=== PATIENT | male | born 1965 | race Caucasian/White ===

== ENCOUNTER 2020-01-31 23:25 | Inpatient (IN) | payer MEDICAID, OTHER ==
[~2020-01-31] VITALS: Ht 184.2 cm; Wt 100.8 kg
[2020-01-31] MEDS ORDERED: MORPHINE SULFATE 4 MG/ML SYR/VIAL IV ONE (23:45)
[2020-02-01] MEDS ORDERED: SODIUM CHLORIDE 0.9% 1,000 ML IV ONE (00:15)
[2020-02-01 00:21] LABS: Basophils # (auto) 0 10 ^3/uL (0-0.2); Basophils % (auto) 0.3 % (0.0-2.0); Eosinophils # (auto) 0.1 10 ^3/uL (0-0.8); Eosinophils % (auto) 0.7 % (0.0-7.0); Hematocrit 48.8 % (41.0-53.0); Hemoglobin 16.5 g/dL (13.5-17.5); Lymphocytes # (auto) 1.3 10 ^3/uL (0.4-5.4); Lymphocytes % (auto) 8.8 % (10.0-50.0); Mean Corpuscular Hemoglobin 29.9 pg (28.0-32.0); Mean Corpuscular Hgb Conc. 33.8 g/dL (32.0-36.0); Mean Corpuscular Volume 88.5 fL (80.0-100.0); Monocytes # (auto) 0.9 10 ^3/uL (0-1.3); Monocytes % (auto) 6.2 % (0.0-12.0); Neutrophils # (auto) 12.1 10 ^3/uL (1.6-8.6); Nucleated Red Blood Cells % 0.1 %; Platelet Count (auto) 227 10^3/uL (140-450); Red Blood Cells 5.51 10^6/uL (4.5-5.90); Red Cell Distribution Width 13.3 % (11.8-14.3); White Blood Cell 14.5 10^3/uL (4.4-10.8)
[2020-02-01 00:39] LABS: Albumin 3.9 g/dL (3.4-5.0); Calcium 9.3 mg/dL (8.5-10.1); Potassium 4.3 mmol/L (3.5-5.1)
[2020-02-01 00:42] LABS: Bilirubin, Total 0.5 mg/dL (0.2-1.0); Total Protein 7.6 g/dL (6.4-8.2)
[2020-02-01] MEDS ORDERED: SODIUM CHLORIDE 0.9% 2,000 ML IV ONE (00:45)
[2020-02-01] MEDS ORDERED: KETOROLAC TROMETH 30 MG/ML 1ML VIAL IV ONE (01:00)
[2020-02-01 01:09] LABS: Lactic Acid w/Reflex 2.2 mmol/L (0.4-2.0)
[2020-02-01] MEDS ORDERED: cefTRIAXone 1GM/50ML D5W 50 ML IV ONE (01:30)
[2020-02-01 02:42] LABS: Urine Bacteria FEW /hpf (None Seen); Urine Blood 2+ /uL (Negative); Urine Mucus FEW (None Seen); Urine Specific Gravity 1.017 (1.001-1.035); Urine WBC 24 /hpf (0 - 3)
[2020-02-01] MEDS ORDERED: VANCOMYCIN 1GM/250ML 250 ML IV ONE (03:30)
[2020-02-01] MEDS ORDERED: ONDANSETRON HCL 4 MG/2 ML VIAL IV ONE (04:30)
[2020-02-01] MEDS ORDERED: HYDROmorphone HCL 2 MG/ML VL IV ONE (04:30)
[2020-02-01] MEDS ORDERED: TAMSULOSIN HYDROCHLORIDE 0.4 MG CAP PO ONE (04:45)
[2020-02-01] MEDS ORDERED: TEMAZEPAM 15 MG CAP PO PRN (04:45)
[2020-02-01] MEDS ORDERED: cloNIDine HCL 0.1 MG TAB PO PRN (04:45)
[2020-02-01] MEDS ORDERED: ONDANSETRON HCL 4 MG/2 ML VIAL IV PRN (04:45)
[2020-02-01] MEDS: SODIUM CHLORIDE 0.9% 1,000 ML IV SCH ×4 (07:38→18:55)
[2020-02-01] MEDS: HYDROcodone-ACET 5/325MG TAB PO PRN (07:45)
--- NOTE | 2020-02-01 08:22 | NUR ---
MS admit from ER JERRELL BELL admitted to tele/MS after SBAR received. Patient oriented to KARISSA CARDENASRN primary RN, unit,280 room,B bed, and unit policies regarding patient care and visiting hours. Patient weighed by bedscale and encouraged to call if they need something. All questions and concerns addressed, patient verbalized understanding.
[2020-02-01 09:00] VITALS: BP_SYST 150; BP_SYST 162; BP_DIAS 88; BP_DIAS 89
[2020-02-01 09:15] VITALS: BP 150/89
[2020-02-01] MEDS: FAMOTIDINE 20 MG TAB PO SCH ×2 (10:00→21:58)
--- NOTE | 2020-02-01 11:05 | NUR ---
Orders received Patient requesting Toradol for pain medication. Informed doctor Yevgeniy that patient is c/o pain from kidney stones and requesting Toradol for pain. New orders received, see emr for orders.
[2020-02-01] MEDS: KETOROLAC TROMETH 30 MG/ML 1ML VIAL IV PRN ×2 (11:23→18:01)
--- NOTE | 2020-02-01 12:05 | NUR ---
Doctor Vuong at bedside.
[2020-02-01 13:00] VITALS: BP 157/80
[2020-02-01 16:55] VITALS: BP 158/86
[2020-02-01] MEDS ORDERED: MANNITOL FTV 25% 12.5 GM/50 ML 50 ML IV ONE (17:15)
[2020-02-01] MEDS: TAMSULOSIN HYDROCHLORIDE 0.4 MG CAP PO SCH (17:44)
--- NOTE | 2020-02-01 18:37 | NUR ---
IV insertion IV access obtained, via clean sterile technique by inserting 20 gauge catheter at left hand after 2 attempts. IV secured properly. No trauma to site. Patient tolerated procedure well.
--- NOTE | 2020-02-01 18:38 | NUR ---
IV removal IV DC'd with sterile technique, catheter fully intact. Pressure dressing applied to site. Patient tolerated procedure well. Discharged with aftercare instructions per MD.
--- NOTE | 2020-02-01 19:00 | NUR ---
Opening Shift Note Assumed care of patient, awake and alert. No S/S of distress/SOB or pain. Instructed on POC and to call for assist as needed, will continue to monitor.
[2020-02-01] MEDS: ACETAMINOPHEN 325 MG TAB PO PRN (20:34)
[2020-02-01] MEDS: MORPHINE SULFATE 4 MG/ML SYR/VIAL IV PRN (21:17)
--- NOTE | 2020-02-01 21:20 | NUR ---
Medicated for pain
[2020-02-01] MEDS ORDERED: cefTRIAXone 1GM/50ML D5W 50 ML IV SCH (22:00)
[2020-02-02] MEDS: KETOROLAC TROMETH 30 MG/ML 1ML VIAL IV PRN ×3 (00:04→17:27)
--- NOTE | 2020-02-02 00:10 | NUR ---
Medicated for pain
[2020-02-02] MEDS: SODIUM CHLORIDE 0.9% 1,000 ML IV SCH ×4 (02:47→15:58)
[2020-02-02] MEDS: MORPHINE SULFATE 4 MG/ML SYR/VIAL IV PRN ×2 (03:51→12:42)
--- NOTE | 2020-02-02 04:02 | NUR ---
Patient wanted to take a shower, he felt better after he did. Pain medication given as well. Now patient is resting comfortable.
[2020-02-02 05:00] VITALS: BP 166/98
[2020-02-02 06:31] LABS: Basophils # (auto) 0 10 ^3/uL (0-0.2); Basophils % (auto) 0.3 % (0.0-2.0); Eosinophils # (auto) 0.3 10 ^3/uL (0-0.8); Eosinophils % (auto) 2.8 % (0.0-7.0); Hematocrit 42.2 % (41.0-53.0); Hemoglobin 14.4 g/dL (13.5-17.5); Lymphocytes % (auto) 8.4 % (10.0-50.0); Mean Corpuscular Hemoglobin 30.3 pg (28.0-32.0); Mean Corpuscular Volume 89.1 fL (80.0-100.0); Monocytes % (auto) 8.8 % (0.0-12.0); Neutrophils # (auto) 9.1 10 ^3/uL (1.6-8.6); Neutrophils % (auto) 79.7 % (37.0-80.0); Platelet Count (auto) 170 10^3/uL (140-450); Red Blood Cells 4.74 10^6/uL (4.5-5.90); Red Cell Distribution Width 13.3 % (11.8-14.3); White Blood Cell 11.5 10^3/uL (4.4-10.8)
[2020-02-02 06:45] LABS: Calcium 8.4 mg/dL (8.5-10.1); Potassium 4.3 mmol/L (3.5-5.1)
--- NOTE | 2020-02-02 06:57 | NUR ---
Patient resting, medicated for pain. Unlabored breathing. Will cont to monitor.
[2020-02-02 07:04] LABS: BUN/Creatinine Ratio 9.7
--- NOTE | 2020-02-02 07:45 | NUR ---
Opening Shift Note Assumed care of patient, awake and oriented x4. No S/S of distress/SOB or pain. Instructed on POC and to call for assist PRN. Patient's bed is in the lowest position, 2 side rails up, items and call light within reach. Will continue to monitor for changes Q1hr and PRN.
[2020-02-02 09:00] VITALS: BP 144/86
[2020-02-02] MEDS: FAMOTIDINE 20 MG TAB PO SCH ×2 (09:54→21:17)
[2020-02-02 13:00] VITALS: BP 147/82
--- NOTE | 2020-02-02 15:16 | NUR ---
Dr. Monsivais at bed side to see pt, doctor discussed the plan of care with pt.
[2020-02-02] MEDS ORDERED: LACTULOSE 20Gm/30ML SOLN PO PRN (15:45)
[2020-02-02] MEDS ORDERED: LACTULOSE 20Gm/30ML SOLN PO ONE (15:45)
[2020-02-02 17:04] VITALS: BP 140/70
[2020-02-02] MEDS: TAMSULOSIN HYDROCHLORIDE 0.4 MG CAP PO SCH (17:21)
[2020-02-02] MEDS: AMPICILLIN INJ 500 MG in SODIUM CHL 0.9% 50 ML IV SCH (17:21)
--- NOTE | 2020-02-02 19:30 | NUR ---
Opening Shift Note Assumed care of patient, awake and alert X 4. No S/S of distress/SOB or pain. Instructed on POC and to call for assist PRN, will continue to monitor.
[2020-02-02] MEDS: HYDROcodone-ACET 5/325MG TAB PO PRN (21:18)
[2020-02-02 22:00] VITALS: BP 157/94
--- NOTE | 2020-02-02 22:43 | NUR ---
Patient C/O pain at IV site, IV DC'd with clean sterile technique, catheter fully intact. Pressure dressing applied to site. Patient tolerated well. NOTE: Patient asked to wait till the morning to place a new IV. Patient was educated on the importance of the IV during hospitalization. Patient verbalized understanding and still refused for now.
--- NOTE | 2020-02-02 23:02 | NUR ---
IV insertion IV access obtained, via clean sterile technique by inserting 20 gauge catheter after 1 attempt. IV secured properly. No trauma to site. Patient tolerated well.
[2020-02-03] VITALS (7 sets, daily range): BP systolic 152–160; BP diastolic 76–110
[2020-02-03] MEDS: AMPICILLIN INJ 500 MG in SODIUM CHL 0.9% 50 ML IV SCH ×6 (01:02→23:36)
[2020-02-03] MEDS: KETOROLAC TROMETH 30 MG/ML 1ML VIAL IV PRN ×2 (01:02→06:58)
[2020-02-03] MEDS: SODIUM CHLORIDE 0.9% 1,000 ML IV SCH ×2 (01:44→09:37)
[2020-02-03] MEDS: HYDROcodone-ACET 5/325MG TAB PO PRN ×3 (02:40→23:51)
--- NOTE | 2020-02-03 07:25 | NUR ---
Opening Shift Note Assumed care of patient, awake and alert sitting in chair at bedside with call light within reach. No S/S of distress/SOB. Instructed on POC and to call for assist PRN, will continue to monitor for changes Q1hr and PRN.
--- NOTE | 2020-02-03 08:10 | NUR ---
Spoke to MD Monsivais in regards to patient's blood pressure made aware of BP: 160/110, new orders received and read back for verification. Will proceed to carry out.
[2020-02-03] MEDS ORDERED: hydrALAZINE HCL 20 MG/ML VL IV ONE (08:15)
[2020-02-03] MEDS: FAMOTIDINE 20 MG TAB PO SCH ×2 (09:37→21:42)
--- NOTE | 2020-02-03 10:58 | NUR ---
Patient off unit Taken down to phlebotomy lab assistant for procedure. No distress noted upon departure, IV flushed prior and is intact/patent. Care endorsed to STEFAN Carey.
[2020-02-03 10:59] LABS: INR 1.05 (0.9-1.15); Partial Thromboplastin Time 32.9 sec (23.64-32.05)
[2020-02-03] MEDS ORDERED: IOHEXOL 350 MG/ML 100ML IJ ONE (11:27)
[2020-02-03] MEDS ORDERED: LIDOCAINE 2%HCL (LOCAL ANESTH.) INJ 20ML MDV ONE (11:27)
[2020-02-03] MEDS ORDERED: fentaNYL CITRATE 100 MCG/2 ML VL ONE (11:28)
[2020-02-03] MEDS ORDERED: MIDAZOLAM HCL 1MG/1ML-2 ML VIAL ONE (11:29)
[2020-02-03 12:12] LABS: BUN/Creatinine Ratio 10.9; Calcium 8.9 mg/dL (8.5-10.1)
[2020-02-03] MEDS ORDERED: hydrALAZINE HCL 20 MG/ML VL IV PRN (15:00)
[2020-02-03] MEDS: MORPHINE SULFATE 4 MG/ML SYR/VIAL IV PRN ×2 (16:39→21:43)
[2020-02-03] MEDS: TAMSULOSIN HYDROCHLORIDE 0.4 MG CAP PO SCH (18:52)
--- NOTE | 2020-02-03 19:28 | NUR ---
Opening Shift Note Assumed care of patient, awake and alert and oriented x4. No S/S of distress/SOB or pain noted at this time. Assessed nephrostomy site, no bleeding or swelling noted, draining clear blood tinged urine , Instructed on POC and to call for assist PRN, patient verbalized understanding, call light within reach, will continue to monitor for changes Q1hr and PRN.
--- NOTE | 2020-02-03 21:30 | NUR ---
IV PATENT TO LEFT HAND 22G ASSESSED SITE, SITE PATENT, AND NO SWELLING NOTED, OFFERED TO CHANGE IV NOTED TO CAUSE MINIMAL DISCOMFORT WHEN FLUSHING IV WITH NS, PT REFUSES AND STATES " NO THEY ARE NOT STICKING ME AGAIN, THEY POKED ME LIKE 7 TIMES", CONT CARE
[2020-02-04] MEDS ORDERED: KETOROLAC TROMETH 30 MG/ML 1ML VIAL IV PRN (00:15)
--- NOTE | 2020-02-04 03:12 | NUR ---
MEDICATIONS HELD PT REQUESTED TORADOL, ORDER WAS OBTAINED FROM DR DOYLE TO RESUME TORADOL, HOWEVER NOTED DR SCHULTZ'S NOTE STATING SHE HAD DC'D Toradol DUE to Cr 1.7, TODAY Cr 1.65, PT UPDATED, WILL ENDORSE TO G[facility]I
[2020-02-04 04:56] VITALS: BP 154/79
[2020-02-04] MEDS: AMPICILLIN INJ 500 MG in SODIUM CHL 0.9% 50 ML IV SCH ×2 (05:46→12:00)
[2020-02-04 06:10] LABS: Potassium 3.6 mmol/L (3.5-5.1)
[2020-02-04 06:19] LABS: BUN/Creatinine Ratio 13.7; Calcium 8.9 mg/dL (8.5-10.1)
[2020-02-04] MEDS: FAMOTIDINE 20 MG TAB PO SCH (09:05)
[2020-02-04 09:07] VITALS: BP 155/80
[2020-02-04] MEDS: ACETAMINOPHEN 325 MG TAB PO PRN (09:14)
--- NOTE | 2020-02-04 12:28 | NUR ---
Est energy needs [id number] kcal (18-20 kcal/kg BW 100.6kg) Est protein needs 60-80g (0.6-0.8g/kg r/t elevated RFTs) will reasses jeremy. Addendum: 02/04/20 at [address] Amended: Links added.
[2020-02-04 12:34] VITALS: BP 157/90
[2020-02-04] MEDS ORDERED: TAM04C PO (14:48)
[2020-02-04] MEDS ORDERED: LACT10SO3 PO (14:48)
[2020-02-04] MEDS ORDERED: FAM20T PO (14:48)
[2020-02-04] MEDS ORDERED: AMOX500T86 PO (14:48)
[2020-02-04 16:27] VITALS: BP 146/90
--- NOTE | 2020-02-04 17:32 | NUR ---
PATIENT GIVEN DC INSTRUCTIONS VERBALIZED UNDERSTANDING. PATIENT ALSO VERBALIZED UNDERSTANDING OF FOLLOWING UP WITH PATIENT WITHIN 7 DAYS OF DC. WAITING ON TO PICK PATIENT UP WITHIN THE HOUR.
--- NOTE | 2020-02-04 17:53 | NUR ---
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 NO S/S OF DISTRESS NOTED AT TIME OF DC.
== END 2020-02-04 17:55 | disposition home or self-care (01) | DRG 463 ==
LOC: ER 23:25 → EDBD 23:25 → OVERFLOW 23:26 → WEST WING 02-01 08:22
PROVIDERS: ADMIT Nurse Practitioner; ATTEND Internal Medicine
PROC: 0T9130Z Drainage of Left Kidney with Drainage Device, Percutaneous Approach (ICD-10-PCS; principal; 2020-02-03)
PROC: BT121ZZ Fluoroscopy of Left Kidney using Low Osmolar Contrast (ICD-10-PCS; 2020-02-03)
DX: N13.6 Pyonephrosis (principal); N17.9 Acute kidney failure, unspecified; B95.2 Enterococcus as the cause of diseases classified elsewhere; K57.30 Diverticulosis of large intestine without perforation or abscess without bleeding; Z87.442 Personal history of urinary calculi; Z80.1 Family history of malignant neoplasm of trachea, bronchus and lung; Z80.42 Family history of malignant neoplasm of prostate; Z80.0 Family history of malignant neoplasm of digestive organs; N20.2 Calculus of kidney with calculus of ureter
CPT/HCPCS: 36415; 50432; 71045; 74176; 76942; 80048; 80053; 81001; 83605; 84443; 85025; 85610; 85730; 86850; 86900; 86901; 87086; 87088; 87186; 96361; 96365; 96367; 96375; 99152; 99153; C1729; G0378; J0696; J1885; J2250; J2405

== ENCOUNTER 2020-02-22 11:35 | Inpatient (IN) | payer MEDICAID ==
[~2020-02-22] VITALS: Ht 182.9 cm; Wt 98.0 kg
[~2020-02-22 11:35] MED LIST: AMOX500T86 PO; FAMO20TA10 PO; LACT10SO3 PO; TAM04C PO
[2020-02-22 16:28] LABS: Basophils # (auto) 0 10 ^3/uL (0-0.2); Basophils % (auto) 0.4 % (0.0-2.0); Eosinophils # (auto) 0.3 10 ^3/uL (0-0.8); Eosinophils % (auto) 2.6 % (0.0-7.0); Hematocrit 43.6 % (41.0-53.0); Hemoglobin 14.9 g/dL (13.5-17.5); Lymphocytes # (auto) 1.5 10 ^3/uL (0.4-5.4); Lymphocytes % (auto) 14.7 % (10.0-50.0); Mean Corpuscular Hemoglobin 30.4 pg (28.0-32.0); Mean Corpuscular Hgb Conc. 34.1 g/dL (32.0-36.0); Mean Corpuscular Volume 89.1 fL (80.0-100.0); Monocytes # (auto) 0.4 10 ^3/uL (0-1.3); Monocytes % (auto) 4.3 % (0.0-12.0); Neutrophils # (auto) 7.8 10 ^3/uL (1.6-8.6); Nucleated Red Blood Cells % 0.1 %; Platelet Count (auto) 261 10^3/uL (140-450); Red Blood Cells 4.89 10^6/uL (4.5-5.90); Red Cell Distribution Width 13.3 % (11.8-14.3)
[2020-02-22 16:46] LABS: Alcohol, Urine < 3.0 mg/dL (0-10); Amphetamine Screen, Urine NEGATIVE (NEGATIVE); Barbiturate Scree,Urine NEGATIVE (NEGATIVE); Benzodiazephine Screen, Urine NEGATIVE (NEGATIVE); Cannabinoid Screen, Urine NEGATIVE (NEGATIVE); Cocaine Screen, Urine NEGATIVE (NEGATIVE); Opiate Scree,Urine NEGATIVE (NEGATIVE); Phencyclidine Screen, Urine NEGATIVE (NEGATIVE)
[2020-02-22 16:47] LABS: Potassium 3.6 mmol/L (3.5-5.1)
[2020-02-22 16:49] LABS: Urine Bacteria FEW /hpf (None Seen); Urine Blood TRACE /uL (Negative); Urine Mucus FEW (None Seen); Urine Specific Gravity 1.019 (1.001-1.035); Urine WBC 84 /hpf (0 - 3)
[2020-02-22 16:53] LABS: Albumin 3.9 g/dL (3.4-5.0); BUN/Creatinine Ratio 11.5; Bilirubin, Total 0.6 mg/dL (0.2-1.0); Calcium 8.9 mg/dL (8.5-10.1); Total Protein 7.7 g/dL (6.4-8.2)
[2020-02-22] MEDS ORDERED: ONDANSETRON HCL 4 MG/2 ML VIAL IV ONE (17:15)
[2020-02-22] MEDS ORDERED: MORPHINE SULF INJ 2 MG/ML SYRINGE 1ML IV ONE (17:15)
[2020-02-22] MEDS ORDERED: TAMSULOSIN HYDROCHLORIDE 0.4 MG CAP PO ONE (17:15)
[2020-02-22] MEDS ORDERED: SODIUM CHLORIDE 0.9% 1,000 ML IV ONE (17:15)
[2020-02-22] MEDS ORDERED: CIPROFLOXACIN 400MG/200ML 200 ML IV ONE (17:30)
[2020-02-22] MEDS ORDERED: MORPHINE SULF INJ 2 MG/ML SYRINGE 1ML IV PRN ×2 (19:45)
[2020-02-22] MEDS ORDERED: HYDROmorphone HCL 2 MG/ML VL IV PRN (19:45)
[2020-02-22] MEDS ORDERED: ACETAMINOPHEN 325 MG TAB PO PRN (19:45)
[2020-02-22] MEDS ORDERED: ONDANSETRON HCL 4 MG/2 ML VIAL IV PRN (19:45)
[2020-02-22] MEDS ORDERED: NITROGLYCERIN 0.4 MG SL TAB SL PRN (19:45)
[2020-02-22] MEDS ORDERED: SODIUM CHLORIDE 0.9% 1,000 ML IV SCH (19:45)
[2020-02-22] MEDS: TAMSULOSIN HYDROCHLORIDE 0.4 MG CAP PO SCH (23:29)
[2020-02-22] MEDS: TEMAZEPAM 15 MG CAP PO PRN (23:52)
[2020-02-23 00:30] VITALS: BP 145/85
--- NOTE | 2020-02-23 00:47 | NUR ---
MS admit from ER JERRELL BELL admitted to MS. Patient oriented to Rama Mitchell, primary RN, unit, room, bed, and unit policies regarding patient care and visiting hours. Patient weighed by bedscale and encouraged to call if they need something. All questions and concerns addressed, patient verbalized understanding. Note:
[2020-02-23] MEDS: levoFLOXacin 500MG 100 ML IV SCH ×2 (02:48→22:00)
[2020-02-23] MEDS ORDERED: CYCL7.5T45 PO (04:18)
[2020-02-23] MEDS ORDERED: HYDR-4833 PO (04:18)
[2020-02-23 05:19] VITALS: BP 140/73
[2020-02-23 06:22] LABS: Basophils # (auto) 0 10 ^3/uL (0-0.2); Basophils % (auto) 0.3 % (0.0-2.0); Eosinophils # (auto) 0.4 10 ^3/uL (0-0.8); Eosinophils % (auto) 3.8 % (0.0-7.0); Hemoglobin 14.4 g/dL (13.5-17.5); Lymphocytes # (auto) 1.5 10 ^3/uL (0.4-5.4); Lymphocytes % (auto) 15.2 % (10.0-50.0); Mean Corpuscular Hemoglobin 30.4 pg (28.0-32.0); Mean Corpuscular Hgb Conc. 34.2 g/dL (32.0-36.0); Mean Corpuscular Volume 88.8 fL (80.0-100.0); Monocytes # (auto) 0.7 10 ^3/uL (0-1.3); Monocytes % (auto) 7.1 % (0.0-12.0); Neutrophils # (auto) 7.5 10 ^3/uL (1.6-8.6); Neutrophils % (auto) 73.6 % (37.0-80.0); Platelet Count (auto) 250 10^3/uL (140-450); Red Blood Cells 4.73 10^6/uL (4.5-5.90); Red Cell Distribution Width 13.3 % (11.8-14.3); White Blood Cell 10.2 10^3/uL (4.4-10.8)
[2020-02-23 06:52] LABS: Potassium 3.8 mmol/L (3.5-5.1)
[2020-02-23 07:08] LABS: BUN/Creatinine Ratio 13.6; Calcium 8.6 mg/dL (8.5-10.1)
--- NOTE | 2020-02-23 07:34 | NUR ---
Opening Shift Note Assumed care of patient, awake and alert. No S/S of distress/SOB, reports mild flank pain. Instructed on POC and to call for assist PRN, will continue to monitor for changes Q1hr and PRN.
[2020-02-23] MEDS: HYDROcodone-ACET 5/325MG TAB PO PRN (09:15)
[2020-02-23 09:36] VITALS: BP 130/64
[2020-02-23] MEDS ORDERED: hydrALAZINE HCL 25 MG TAB PO PRN (11:00)
[2020-02-23 13:00] VITALS: BP 133/78
[2020-02-23] MEDS: SODIUM CHLORIDE 0.9% 1,000 ML IV SCH ×3 (16:40→23:25)
[2020-02-23 16:47] VITALS: BP 130/59
--- NOTE | 2020-02-23 19:55 | NUR ---
ASSUMED CARE, PT. AWAKE, NEPHROSTOMY TUBE IN PLACE DRAINING WELL, NO C/O PAIN, NOT IN DISTRESS.
[2020-02-23 22:00] VITALS: BP 147/93
[2020-02-23] MEDS: TEMAZEPAM 15 MG CAP PO PRN (22:00)
[2020-02-23] MEDS: TAMSULOSIN HYDROCHLORIDE 0.4 MG CAP PO SCH (22:00)
[2020-02-24 05:00] VITALS: BP 138/74
[2020-02-24] MEDS: SODIUM CHLORIDE 0.9% 1,000 ML IV SCH (06:10)
--- NOTE | 2020-02-24 07:45 | NUR ---
OPENING NOTE ASSUMED CARE OF PT. ALERT AND ORIENTED. NO S/S OF SOB/DISTRESS NOTED. BED SET TO LOWEST POSITION/LOCKED, BEDSIDE RAILS UP X2, CALL LIGHT WITHIN REACH. INSTRUCTED PT TO CALL FOR ASSISTANCE. UPDATED ON POC. WILL CONTINUE TO MONITOR Q1HR AND PRN.
[2020-02-24 09:00] VITALS: BP 136/83
[2020-02-24] MEDS: SOD CHL 0.9%/ KCL 20MEQ 1,000 ML IV SCH (12:32)
[2020-02-24] MEDS: HYDROcodone-ACET 5/325MG TAB PO PRN ×2 (12:33→21:25)
[2020-02-24] MEDS: TEMAZEPAM 15 MG CAP PO PRN (21:24)
[2020-02-24] MEDS: TAMSULOSIN HYDROCHLORIDE 0.4 MG CAP PO SCH (21:24)
[2020-02-24] MEDS: levoFLOXacin 500MG 100 ML IV SCH (21:25)
[2020-02-24 22:00] VITALS: BP 159/96
[2020-02-25] MEDS ORDERED: CYCL7.5T45 PO (00:10)
--- NOTE | 2020-02-25 00:12 | NUR ---
SPOKE TO HOSPITALIST YANIRA, NOTIFIED HOSPITALIST OF PATIENT REQUESTING FLEXERIL 10 MG PO TID TAKEN AT HOME FOR A MUSCLE RELAXANT MEDICATION. HOSPITALIST YANIRA PROVIDED ORDER OF FLEXERIL 10 MG PO BID PRN-READ BACK AND CONFIRMED WITH YANIRA HOSPITALIST.
[2020-02-25] MEDS: CYCLOBENZAPRINE HCL 10 MG TAB PO PRN ×2 (01:20→21:10)
[2020-02-25] MEDS: SOD CHL 0.9%/ KCL 20MEQ 1,000 ML IV SCH ×2 (01:21→14:27)
[2020-02-25 05:01] VITALS: BP 130/79
[2020-02-25 05:36] LABS: INR 1.06 (0.9-1.15); Partial Thromboplastin Time 34.2 sec (23.64-32.05)
[2020-02-25 05:38] LABS: BUN/Creatinine Ratio 14.3; Calcium 9.1 mg/dL (8.5-10.1)
[2020-02-25 08:00] VITALS: BP 134/78
[2020-02-25 09:00] VITALS: BP 134/78
[2020-02-25] MEDS ORDERED: FLUCONAZOLE 100 MG TAB PO ONE (11:15)
[2020-02-25] MEDS ORDERED: cefTRIAXone 1GM/50ML D5W 50 ML IV SCH (12:00)
--- NOTE | 2020-02-25 12:13 | NUR ---
Nutrition Assessment Notes please see attached link for complete assessment Est energy needs BW 99 [id number] kcal (23-25kcal/kg), Est protein needs: 99-108g (1.0-1.1g/kg BW). Will reassess prn Addendum: 02/25/20 at [address] Amended: Links added.
[2020-02-25 13:00] VITALS: BP 130/74
[2020-02-25 16:56] VITALS: BP 145/94
[2020-02-25] MEDS: TAMSULOSIN HYDROCHLORIDE 0.4 MG CAP PO SCH (21:07)
[2020-02-25 22:00] VITALS: BP 151/90
[2020-02-25] MEDS: HYDROcodone-ACET 5/325MG TAB PO PRN (23:15)
[2020-02-25] MEDS: TEMAZEPAM 15 MG CAP PO PRN (23:15)
[2020-02-26] MEDS: SOD CHL 0.9%/ KCL 20MEQ 1,000 ML IV SCH ×2 (04:45→16:48)
[2020-02-26 05:00] VITALS: BP 129/90
[2020-02-26 09:00] VITALS: BP 142/90
[2020-02-26] MEDS: levoFLOXacin 500 MG TAB PO SCH (11:03)
[2020-02-26] MEDS: FLUCONAZOLE 100 MG TAB PO SCH (11:03)
--- NOTE | 2020-02-26 11:36 | NUR ---
REPORT GIVEN TO PASHA Rios
--- NOTE | 2020-02-26 11:44 | NUR ---
Assumed Pt Care Assumed pt care from STEFAN Black. PT is a/ox4 with no s/s of distress. Safety measures maintained with call light within reach, bed in lowest position and side rails up. Will continue to monitor.
--- NOTE | 2020-02-26 12:18 | NUR ---
Tele 36 Placed on Patient
[2020-02-26 13:00] VITALS: BP_SYST 121; BP_SYST 143; BP_DIAS 70; BP_DIAS 88
[2020-02-26 17:00] VITALS: BP 151/88
--- NOTE | 2020-02-26 20:00 | NUR ---
Opening Shift Note Assumed care of patient. Awake, alert and oriented x4. No S/S of distress/SOB or pain. Patient sitting up in bed on room air with even and unlabored respirations. Instructed on POC and to call for assist PRN. Bed locked, in lowest position, call light within reach, side rails up x2. Will continue to monitor for changes Q1hr and PRN.
[2020-02-26 22:00] VITALS: BP 149/90
[2020-02-26] MEDS: CYCLOBENZAPRINE HCL 10 MG TAB PO PRN (23:29)
[2020-02-26] MEDS: TAMSULOSIN HYDROCHLORIDE 0.4 MG CAP PO SCH (23:29)
[2020-02-26] MEDS: HYDROcodone-ACET 5/325MG TAB PO PRN (23:29)
[2020-02-26] MEDS: TEMAZEPAM 15 MG CAP PO PRN (23:39)
[2020-02-27 05:00] VITALS: BP 120/82
[2020-02-27] MEDS: SOD CHL 0.9%/ KCL 20MEQ 1,000 ML IV SCH ×2 (06:25→19:45)
--- NOTE | 2020-02-27 07:38 | NUR ---
Opening Shift Note Assumed care of patient, awake and alert. No S/S of distress/SOB or pain. Respirations are even and unlabored. Updated on POC and instructed to call for assistance as needed, patient verbalized understanding. Bed locked in lowest position, side rails up x2, call light within reach. Will continue to monitor for changes Q1hr and PRN.
[2020-02-27 08:00] VITALS: BP 149/86
[2020-02-27] MEDS: FLUCONAZOLE 100 MG TAB PO SCH (09:25)
[2020-02-27] MEDS: levoFLOXacin 500 MG TAB PO SCH (09:25)
[2020-02-27 12:00] VITALS: BP 124/76
[2020-02-27 17:00] VITALS: BP 155/96
--- NOTE | 2020-02-27 17:29 | NUR ---
PATIENT TAKEN TO PREOP FOR PROCEDURE. NO DISTRESS NOTED.
[2020-02-27] MEDS ORDERED: IOHEXOL 300 MG/ML 100ML BOTTLE IJ ONE (17:50)
[2020-02-27] MEDS ORDERED: SUCCINYLCHOLINE CHLORIDE 20 MG/ML 10ML VIAL IV ONE (17:54)
[2020-02-27] MEDS ORDERED: LIDOCAINE 1% (LOCAL ANESTH.) PF 5ml SDV ONE (17:54)
[2020-02-27] MEDS ORDERED: CIPROFLOXACIN 400MG/200ML 200 ML IV ONE (18:02)
[2020-02-27] MEDS ORDERED: METOCLOPRAMIDE HCL 5MG/ml INJ 2ml VIAL ONE (18:07)
[2020-02-27] MEDS ORDERED: MIDAZOLAM HCL 1MG/1ML-2 ML VIAL ONE (18:07)
[2020-02-27] MEDS ORDERED: fentaNYL CITRATE 100 MCG/2 ML VL ONE (18:17)
[2020-02-27] MEDS ORDERED: HYDROmorphone HCL 2 MG/ML VL IV PRN ×2 (18:30)
[2020-02-27] MEDS ORDERED: ONDANSETRON HCL 4 MG/2 ML VIAL IV PRN (18:30)
[2020-02-27] MEDS ORDERED: hydrALAZINE HCL 20 MG/ML VL IV PRN (18:30)
[2020-02-27] MEDS ORDERED: NALOXONE HCL 0.4 MG/ML VIAL IV PRN (18:30)
[2020-02-27] MEDS ORDERED: MANNITOL FTV 25% 12.5 GM/50 ML 50 ML IV ONE ×3 (19:15→19:36)
--- NOTE | 2020-02-27 20:15 | NUR ---
Patient returned from OR to MS/Tele unit via hospital bed Respirations even and unlabored, no distress noted. Patient states that he feels "woozy" otherwise no complaints. Vitals include Temp 98.8F, BP 143/78, HR 54, RR 18, and SPO2 97% RA. Call light within reach. Bed alarm on for safety.
[2020-02-27 22:00] VITALS: BP 151/98
[2020-02-27] MEDS: AMOXICILLIN/CLAVUL 875 MG TAB PO SCH (22:00)
[2020-02-27] MEDS: TAMSULOSIN HYDROCHLORIDE 0.4 MG CAP PO SCH (22:00)
--- NOTE | 2020-02-28 01:15 | NUR ---
LEFT FLANK PAIN Upon answering the patient's call light, he reports a throbbing 5/10 left flank pain. The patient requested pain medication. Will treat with PRN Toradol and a hot pack.
[2020-02-28] MEDS: KETOROLAC TROMETH 30 MG/ML 1ML VIAL IV PRN ×2 (01:20→07:00)
--- NOTE | 2020-02-28 02:15 | NUR ---
PAIN REASSESSMENT The patient states that his pain is 0/10. The patient is resting comfortably in bed. Will continue to monitor the patient's status.
[2020-02-28 05:00] VITALS: BP 147/98
--- NOTE | 2020-02-28 06:50 | NUR ---
PAIN ASSESSMENT The patient states that he feels like his pain is coming back. He reports that his current pain is 4/10 and is requesting pain medication. Will treat with PRN pain medication.
--- NOTE | 2020-02-28 07:30 | NUR ---
Opening Shift Note Assumed care of patient, awake and alert. No S/S of distress/SOB or pain. Respirations are even and unlabored. Updated on POC and instructed to call for assistance as needed, patient verbalized understanding. Bed locked in lowest position, side rails up x2, call light within reach. Will continue to monitor.
[2020-02-28 08:00] VITALS: BP 148/86
[2020-02-28] MEDS ORDERED: AMOX-277 PO (09:36)
[2020-02-28] MEDS ORDERED: TAM04C PO ×2 (09:36)
[2020-02-28] MEDS: SOD CHL 0.9%/ KCL 20MEQ 1,000 ML IV SCH (10:18)
[2020-02-28] MEDS: FLUCONAZOLE 100 MG TAB PO SCH (10:21)
[2020-02-28] MEDS: AMOXICILLIN/CLAVUL 875 MG TAB PO SCH (10:21)
[2020-02-28 11:19] VITALS: BP 148/86
[2020-02-28 12:00] VITALS: BP 141/82
[2020-02-28] MEDS: HYDROcodone-ACET 5/325MG TAB PO PRN (15:02)
--- NOTE | 2020-02-28 17:15 | NUR ---
Discharge home Discharge instructions given as ordered. Encourage to follow up with PMD as instructed. Patient instructed to follow up with urologist in 2 weeks. All questions and concerns addressed. Patient verbalized understanding. Medication reconciliation form completed and copy given to patient. IV removed with catheter intact, pressure dressing applied. Telemetry unit returned to ICU. Patient taken to vehicle via wheelchair with all personal belongings, accompanied by staff. No distress noted at time of departure.
--- NOTE | 2020-02-29 10:53 | NUR ---
assessment Patient was out of his room earlier yesterday for my assessment. The second time I tried to do my assessment he was in the bathroom per Valeria AVILES. Patient was discharged home last night prior to being assessed. Per RN patient had no issues or discharge needs. Addendum: 02/29/20 at 1055 by Olinda AARON Amended: Links added.
== END 2020-02-28 17:15 | disposition home or self-care (01) | DRG 463 ==
LOC: ER 11:35 → OVERFLOW 11:36 → CENTRAL 23:46 → TELE-CENTR 02-26 09:46
PROVIDERS: ADMIT Internal Medicine; ATTEND Internal Medicine
PROC: BT121ZZ Fluoroscopy of Left Kidney using Low Osmolar Contrast (ICD-10-PCS; 2020-02-27)
PROC: 0TF7XZZ Fragmentation in Left Ureter, External Approach (ICD-10-PCS; principal; 2020-02-27 17:56)
DX: N13.6 Pyonephrosis (principal); N13.8 Other obstructive and reflux uropathy; N40.0 Benign prostatic hyperplasia without lower urinary tract symptoms; B95.2 Enterococcus as the cause of diseases classified elsewhere; B96.20 Unspecified Escherichia coli [E. coli] as the cause of diseases classified elsewhere; G89.29 Other chronic pain; I10 Essential (primary) hypertension; M54.5 Low back pain; Z80.0 Family history of malignant neoplasm of digestive organs; Z80.1 Family history of malignant neoplasm of trachea, bronchus and lung; Z80.42 Family history of malignant neoplasm of prostate; Z82.49 Family history of ischemic heart disease and other diseases of the circulatory system; Z87.442 Personal history of urinary calculi; Z93.6 Other artificial openings of urinary tract status
CPT/HCPCS: 36415; 71045; 74176; 80048; 80053; 80307; 81001; 82360; 83036; 84154; 85025; 85610; 85730; 87040; 87086; 87088; 87186; 93005; G0378; J0330; J0696; J1885; J1956; J2250; J2405

== ENCOUNTER → 2020-03-08 | Outpatient (CLI) | payer MEDICAID ==
[~2020-03-08] MED LIST changes: +AMOX-277 PO; -AMOX500T86 PO; +CYCL7.5T45 PO; +HYDR-4833 PO; +IOHEXOL 300 MG/ML 100ML BOTTLE IJ ONE
== END | disposition home or self-care (01) ==
LOC: Rad HDHVI 11:20
PROVIDERS: ATTEND Urology
DX: N20.0 Calculus of kidney (principal); Z93.6 Other artificial openings of urinary tract status
CPT/HCPCS: 50389; 87086; 87088; Q9967; 74425

== ENCOUNTER 2020-03-22 15:59 | Emergency (ER) | payer MEDICAID ==
[~2020-03-22] VITALS: Ht 185.4 cm; Wt 93.0 kg
[~2020-03-22 15:59] MED LIST changes: -IOHEXOL 300 MG/ML 100ML BOTTLE IJ ONE
[2020-03-22 16:13] VITALS: BP 153/103
[2020-03-22 19:10] LABS: Basophils # (auto) 0.1 10 ^3/uL (0-0.2); Basophils % (auto) 1.1 % (0.0-2.0); Eosinophils # (auto) 0.2 10 ^3/uL (0-0.8); Eosinophils % (auto) 2.3 % (0.0-7.0); Hematocrit 46.7 % (41.0-53.0); Hemoglobin 16.1 g/dL (13.5-17.5); Lymphocytes # (auto) 2.5 10 ^3/uL (0.4-5.4); Lymphocytes % (auto) 32.2 % (10.0-50.0); Mean Corpuscular Hemoglobin 30.6 pg (28.0-32.0); Mean Corpuscular Hgb Conc. 34.5 g/dL (32.0-36.0); Mean Corpuscular Volume 88.9 fL (80.0-100.0); Monocytes # (auto) 0.6 10 ^3/uL (0-1.3); Neutrophils # (auto) 4.3 10 ^3/uL (1.6-8.6); Neutrophils % (auto) 56.4 % (37.0-80.0); Nucleated Red Blood Cells % 0.2 %; Platelet Count (auto) 290 10^3/uL (140-450); Red Blood Cells 5.26 10^6/uL (4.5-5.90); Red Cell Distribution Width 13.5 % (11.8-14.3); White Blood Cell 7.7 10^3/uL (4.4-10.8)
[2020-03-22] MEDS ORDERED: HYDROcodone-ACET 10/325MG TAB PO ONE (19:45)
== END 2020-03-22 20:14 | disposition home or self-care (01) ==
LOC: ER 15:59
DX: S39.012A Strain of muscle, fascia and tendon of lower back, initial encounter (principal); M54.41 Lumbago with sciatica, right side; K40.90 Unilateral inguinal hernia, without obstruction or gangrene, not specified as recurrent; K57.90 Diverticulosis of intestine, part unspecified, without perforation or abscess without bleeding; X58.XXXA Exposure to other specified factors, initial encounter; Y93.89 Activity, other specified; Y92.89 Other specified places as the place of occurrence of the external cause; Y99.8 Other external cause status
CPT/HCPCS: 36415; 74176; 85025